=== PATIENT | male | born 1970 | race American Indian/Alaskan Native ===

== ENCOUNTER 2016-09-28 02:07 | Inpatient (IN) | payer MEDICAID ==
[2016-09-28 03:02] LABS: Anion Gap 20 mmol/L; Blood Urea Nitrogen 21 mg/dL (9-20); Calcium 8.9 mg/dL (8.4-10.2); Carbon Dioxide 25 mmol/L (22-30); Chloride 98.3 mmol/L (98-107); Glucose 103 mg/dL (75-100); Potassium 3.9 mmol/L (3.6-5.0); Sodium 139 mmol/L (137-145)
[2016-09-28 03:20] LABS: Basophils % (Auto) 0.7 % (0.0-1.8); Hematocrit 40.5 % (35.5-45.6); Hemoglobin 13.3 gm/dl (11.8-15.2); Mean Corpuscular HGB Conc 33 % (32-34); Mean Corpuscular Hemoglobin 29 pg (28-32); Mean Corpuscular Volume 87 fl (84-94); Platelet Count 186 K/mm3 (140-440); Red Blood Count 4.67 M/mm3 (3.65-5.03); Red Cell Distribution Width 15.4 % (13.2-15.2)
--- NOTE | 2016-09-28 07:38 | XRay Report ---
ROUTINE CHEST, TWO VIEWS: HISTORY: chest pain. The trachea, heart, mediastinal contour, lung saba and bony thorax are unremarkable. IMPRESSION: No acute cardiopulmonary process appreciated.
[2016-09-28] MEDS ORDERED: NITRO-BID 2% TP ONE (08:08)
[2016-09-28] MEDS ORDERED: MORPHINE IV ONE (08:08)
[2016-09-28] MEDS ORDERED: ZOFRAN IV ONE (08:08)
[2016-09-28] MEDS ORDERED: ASPIRIN PO ONE (08:17)
--- NOTE | 2016-09-28 08:17 | Emergency Department Report ---
HPI - General Chief Complaint: Chest Pain Time Seen by Provider: 09/28/16 08:00 - [facility] HPI: Room 18 The patient is a 45-year-old male presenting with a chief complaint of chest pain. The patient states for 1 week history of intermittent pain in the substernal/right chest described as aching in nature. The patient states sometimes it hurts when he moves all the times it hurts at rest. Patient denies shortness of breath, nausea/vomiting or diaphoresis. The patient admits to intermittent left upper extremity pain with chest pain. Patient states she' s never had a stress test or cardiac catheterization Location: Chest Duration: Intermittent times one week Quality: Aching Severity: 5/10 Modifying factors: [see above] Context: [see above] Mode of transportation: Unknown ED Past Medical Hx - Past Medical History Previous Medical History?: No - Surgical History Past Surgical History?: No - Social History Smoking Status: Never Smoker Substance Use Type: None ED Review of Systems ROS: Stated complaint: CHEST PAIN Other details as noted in HPI Physical Exam - Physical Exam Vital Signs: Vital Signs 09/28/16 09/28/16 02:20 05:59 Temperature 98.4 F 98 F Pulse Rate 76 71 Respiratory 16 21 Rate Blood Pressure 113/82 Blood Pressure 107/72 [Right] O2 Sat by Pulse 95 95 Oximetry ED Course Vital Signs 09/28/16 09/28/16 02:20 05:59 Temperature 98.4 F 98 F Pulse Rate 76 71 Respiratory 16 21 Rate Blood Pressure 113/82 Blood Pressure 107/72 [Right] O2 Sat by Pulse 95 95 Oximetry ED Medical Decision Making - Lab Data Result diagrams: 09/28/16 02:29 09/28/16 02:29 Laboratory Tests 09/28/16 09/28/16 09/28/16 02:29 02:29 04:58 WBC 5.0 RBC 4.67 Hgb 13.3 Hct 40.5 MCV 87 MCH 29 MCHC 33 RDW 15.4 H Plt Count 186 Lymph % (Auto) 34.0 Foard % (Auto) 7.0 Eos % (Auto) 4.0 Baso % (Auto) 0.7 Lymph # 1.7 Foard # 0.3 Eos # 0.2 Baso # 0.0 Seg Neutrophils % 54.3 Seg Neutrophils # 2.7 Sodium 139 Potassium 3.9 Chloride 98.3 Carbon Dioxide 25 Anion Gap 20 BUN 21 H Creatinine 1.2 Estimated GFR > 60 BUN/Creatinine Ratio 17.50 Glucose 103 H Calcium 8.9 Troponin T < 0.010 < 0.010 - EKG Data -: EKG Interpreted by Me EKG shows normal: sinus rhythm Rate: normal - EKG Data When compared to previous EKG there are: previous EKG unavailable Interpretation: other (no ischemic changes seen) - Radiology Data Radiology results: image reviewed (chest x-ray) interpreted by me: Chest x-ray-no focal infiltrates, no pneumothorax - Differential Diagnosis ACS, GERD, pericarditis, costochondritis Critical care attestation.: If time is entered above; I have spent that time in minutes in the direct care of this critically ill patient, excluding procedure time. ED Disposition Clinical Impression: Chest pain Disposition: OP ADMIT IP TO THIS HOSP Is pt being admited?: Yes Does the pt Need Aspirin: Yes Condition: Fair Instructions: Chest Pain (ED) Referrals: PRIMARY CARE, [Primary Care Provider] - 3-5 Days Time of Disposition: 08:17 (hospitalist notified)
[2016-09-28] MEDS ORDERED: DULCOLAX PR PRN (08:35)
[2016-09-28] MEDS ORDERED: MORPHINE IV PRN (08:35)
[2016-09-28] MEDS ORDERED: TYLENOL PO PRN (08:35)
[2016-09-28] MEDS ORDERED: ZOFRAN IM PRN (08:38)
--- NOTE | 2016-09-28 08:38 | History and Physical Report ---
<IVON WILLAMS - Last Filed: 09/28/16 13:33> History of Present Illness History of present illness: Patient is a 45 years -Citizen Of [place] male with no past medical history, who presented to the ED complaining of left chest pain. He states that the pain began last night and consisted of a dull pain. The pain was located over his left chest area somewhat near his shoulder; radiating to left arm and shoulder. The onset of pain came while the patient was at home watching TV. The pain is a dull, preceded by a short interval of a sharp pain.The sharp pain lasted around 1-2 seconds. The patient did experience some muscle stiffness in his left arm and leg after the pain ceased.He continued to have several episodes of the pain throughout the night, so he decided to visit the emergency department. The painful episodes did not increase in intensity or severity during this time. Patient was given nitroglycerin, ASA and which he claims helped alleviate the pain somewhat. All There is no aggravating factor. The patient currently rated his pain a score of 5/10. He experienced shortness of breath and diaphoresis during these episodes of pain. He denies nausea vomiting. He has never had chest pain in the past. Past History Past Medical History: No medical history Past Surgical History: No surgical history Social history: no significant social history Family history: CAD, hypertension Medications and Allergies Allergies Allergy/AdvReac Type Severity Reaction Status Date / Time No Known Allergies Allergy Verified 09/28/16 02:18 Home Medications Medication Instructions Recorded Confirmed Last Taken Type No Known Home Medications [No 09/28/16 09/28/16 Unknown History Reported Home Medications] Review of Systems Constitutional: sweats, no weight loss, no weight gain, no fever Ears, nose, mouth and throat: no ear pain, no ear discharge, no tinnitis, no decreased hearing, no nose pain, no nasal congestion Cardiovascular: chest pain, lightheadedness, shortness of breath, no syncope, no dyspnea on exertion, no paroxysmal nocturnal dyspnea Respiratory: no cough with sputum, no dyspnea on exertion Gastrointestinal: no nausea, no vomiting Genitourinary Male: no hematuria, no flank pain, no discharge Rectal: no pain, no incontinence Musculoskeletal: no neck stiffness, no neck pain, no shooting arm pain, no low back pain, no leg numbness/tingling Integumentary: no pruritis, no redness Neurological: no transient paralysis, no paralysis, no weakness Psychiatric: no memory loss, no change in sleep habits, no sleep disturbances, no insomnia, no hypersomnia Endocrine: no cold intolerance, no polyphagia, no excessive thirst Hematologic/Lymphatic: no easy bruising, no easy bleeding Allergic/Immunologic: no urticaria, no allergic rhinitis Exam - Constitutional Vitals: Temp Pulse Resp BP Pulse Ox 98 F 71 21 107/72 95 09/28/16 05:59 09/28/16 05:59 09/28/16 05:59 09/28/16 05:59 09/28/16 05:59 General appearance: Present: no acute distress - EENT Eyes: Present: PERRL ENT: hearing intact - Neck Neck: Present: supple - Respiratory Respiratory effort: normal - Cardiovascular Heart rate: 76 Rhythm: regular - Extremities Extremities: no ischemia Peripheral Pulses: within normal limits - Abdominal Male genitourinary: Present: deferred - Rectal Rectal Exam: deferred - Integumentary Integumentary: Present: clear, warm, dry - Musculoskeletal Musculoskeletal: strength equal bilaterally - Psychiatric Psychiatric: appropriate mood/affect - Neurologic Neurologic: CNII-XII intact - Allied Health Allied health notes reviewed: nursing Results - Labs CBC & Chem 7: 09/28/16 02:29 09/28/16 02:29 Labs: Laboratory Last Values WBC 5.0 K/mm3 (4.5-11.0) 09/28/16 02:29 RBC 4.67 M/mm3 (3.65-5.03) 09/28/16 02:29 Hgb 13.3 gm/dl (11.8-15.2) 09/28/16 02:29 Hct 40.5 % (35.5-45.6) 09/28/16 02:29 MCV 87 fl (84-94) 09/28/16 02:29 MCH 29 pg (28-32) 09/28/16 02:29 MCHC 33 % (32-34) 09/28/16 02:29 RDW 15.4 % (13.2-15.2) H 09/28/16 02:29 Plt Count 186 K/mm3 (140-440) 09/28/16 02:29 Lymph % (Auto) 34.0 % (13.4-35.0) 09/28/16 02:29 King % (Auto) 7.0 % (0.0-7.3) 09/28/16 02: Eos % (Auto) 4.0 % (0.0-4.3) 09/28/16 02: Baso % (Auto) 0.7 % (0.0-1.8) 09/28/16 02: Lymph # 1.7 K/mm3 (1.2-5.4) 09/28/16 02: King # 0.3 K/mm3 (0.0-0.8) 09/28/16 02: Eos # 0.2 K/mm3 (0.0-0.4) 09/28/16 02: Baso # 0.0 K/mm3 (0.0-0.1) 09/28/16 02: Seg Neutrophils % 54.3 % (40.0-70.0) 09/28/16 02: Seg Neutrophils # 2.7 K/mm3 (1.8-7.7) 09/28/16 02:29 Sodium 139 mmol/L (137-145) 09/28/16 02:29 Potassium 3.9 mmol/L (3.6-5.0) 09/28/16 02:29 Chloride 98.3 mmol/L (98-107) 09/28/16 02:29 Carbon Dioxide 25 mmol/L (22-30) 09/28/16 02:29 Anion Gap 20 mmol/L 09/28/16 02:29 BUN 21 mg/dL (9-20) H 09/28/16 02:29 Creatinine 1.2 mg/dL (0.8-1.5) 09/28/16 02:29 Estimated GFR > 60 ml/min 09/28/16 02:29 BUN/Creatinine Ratio 17.50 % 09/28/16 02:29 Glucose 103 mg/dL (75-100) H 09/28/16 02:29 Calcium 8.9 mg/dL (8.4-10.2) 09/28/16 02:29 Troponin T < 0.010 ng/mL (0.00-0.029) 09/28/16 04:58 Assessment and Plan Assessment and plan: Assessment and plan: Patient is a 45 years -Citizen Of [place] male with no past medical history, who presented to the ED complaining of right chest pain. He states that the pain began last night and consisted of a dull pain.He has never had chest pain in the past. Chest x-ray-no focal infiltrates, no pneumothorax. Cardiac enzyme negative and Normal EKG Sinus rhythm Chest pain We will admit to telemetry Normal EKG Sinus rhythm We will repeat serial cardiac enzymes and follow cardiac enzymes troponin. Fluid hydration Stress test Lexiscan ordered Start on aspirin Morphine ordered for pain DVT prophylaxis Lovenox patient Full code <JOSÉ CANALES - Last Filed: 09/28/16 13:45> History of Present Illness Date of admission: 09/28/16 08:36 Past History Social history: no significant social history. denies: smoking, alcohol abuse, IV drug use Medications and Allergies Active Meds: Active Medications Acetaminophen (Tylenol) 650 mg PO Q4H PRN PRN Reason: Pain MILD(1-3)/Fever >100.5/SANTOS Aspirin (Aspirin) 325 mg PO QDAY YANET Bisacodyl (Dulcolax) 10 mg WA QDAY PRN PRN Reason: Constipation unrelieved by MOM Enoxaparin Sodium (Lovenox) 40 mg SUB-Q QDAY YANET Last Admin: 09/28/16 13:19 Dose: 40 mg Morphine Sulfate (Morphine) 2 mg IV Q4H PRN PRN Reason: Pain, Moderate (4-6) Ondansetron HCl (Zofran) 4 mg IM Q4H PRN PRN Reason: Nausea And Vomiting Exam - Constitutional Vitals: Temp Pulse Resp BP Pulse Ox 98 F 77 20 119/78 100 09/28/16 05:59 09/28/16 11:23 09/28/16 11:00 09/28/16 11:23 09/28/16 11:00 Results - Labs CBC & Chem 7: 09/28/16 02:29 09/28/16 02:29 Labs: Laboratory Last Values WBC 5.0 K/mm3 (4.5-11.0) 09/28/16 02:29 RBC 4.67 M/mm3 (3.65-5.03) 09/28/16 02:29 Hgb 13.3 gm/dl (11.8-15.2) 09/28/16 02:29 Hct 40.5 % (35.5-45.6) 09/28/16 02: MCV 87 fl (84-94) 09/28/16 02: MCH 29 pg (28-32) 09/28/16 02: MCHC 33 % (32-34) 09/28/16 02: RDW 15.4 % (13.2-15.2) H 09/28/16 02: Plt Count 186 K/mm3 (140-440) 09/28/16 02: Lymph % (Auto) 34.0 % (13.4-35.0) 09/28/16 02: King % (Auto) 7.0 % (0.0-7.3) 09/28/16 02: Eos % (Auto) 4.0 % (0.0-4.3) 09/28/16 02: Baso % (Auto) 0.7 % (0.0-1.8) 09/28/16 02: Lymph # 1.7 K/mm3 (1.2-5.4) 09/28/16 02: King # 0.3 K/mm3 (0.0-0.8) 09/28/16 02: Eos # 0.2 K/mm3 (0.0-0.4) 09/28/16 02: Baso # 0.0 K/mm3 (0.0-0.1) 09/28/16 02: Seg Neutrophils % 54.3 % (40.0-70.0) 09/28/16 02: Seg Neutrophils # 2.7 K/mm3 (1.8-7.7) 09/28/16 02: Sodium 139 mmol/L (137-145) 09/28/16 02: Potassium 3.9 mmol/L (3.6-5.0) 09/28/16 02: Chloride 98.3 mmol/L (98-107) 09/28/16 02: Carbon Dioxide 25 mmol/L (22-30) 09/28/16 02:29 Anion Gap 20 mmol/L 09/28/16 02:29 BUN 21 mg/dL (9-20) H 09/28/16 02: Creatinine 1.2 mg/dL (0.8-1.5) 09/28/16 02:29 Estimated GFR > 60 ml/min 09/28/16 02:29 BUN/Creatinine Ratio 17.50 % 09/28/16 02:29 Glucose 103 mg/dL (75-100) H 09/28/16 02:29 Calcium 8.9 mg/dL (8.4-10.2) 09/28/16 02:29 Troponin T < 0.010 ng/mL (0.00-0.029) 09/28/16 08:31 Assessment and Plan Assessment and plan: I saw and evaluated the patient. I agree with the findings and the plan of care as documented in the Nurse Practitioner's~note, with the following corrections and additions.
--- NOTE | 2016-09-28 08:47 | Admit Criteria Form ---
Admission Criteria Documentation: CARDIOLOGY GRG Clinical Indications for Admission to Inpatient Care ( Place 'X' for any and all applicable criteria): Hospital admission is needed for appropriate care of the patient because of ANY ONE of the following (1): [ ] I. Hemodynamic instability as indicated by ALL of the following (1)(2)(3) (4)(5) [ ]a) Vital signs or other findings not as expected for chronic patient condition or baseline [ ]b) Instability indicated by ANY ONE of the following: [ ]i) Hypotension [ ]ii) Symptomatic Tachycardia unresponsive to treatment ( e.g., analgesia, fluids, sedation as indicated) [ ]iii) Inadequate perfusion indicated by ANY ONE of the following: [ ] 1) Lactic acidosis (> 2 mmol/L) [ ] 2) New abnormal capillary refill (> 3 seconds) [ ] 3) Reduced urine output [ ] 4) New altered mental status [ ]iv) Orthostatic vital sign changes unresponsive to treatment (e.g., fluids) [ ]v) IV inotropic or vasopressor medication required to maintain adequate blood pressure or perfusion [ ] II. Severe heart failure as indicated by ANY ONE of the following(17)(18) [ ]a) Respiratory distress [ ]b) Hypotension [ ]c) Anasarca (refractory to outpatient therapy) [ ]d) Cardiac arrhythmias of immediate concern [ ]e) Myocardial ischemia [ ] III. Cardiac arrhythmias or findings of immediate concern indicated by ANY ONE of the following (19)(20): [ ] a) Heart rhythms that are inherently dangerous or unstable indicated by ANY ONE of the following (21)(22)(23): [ ] i) Resuscitated ventricular fibrillation or cardiac arrest [ ] ii) Ventricular escape rhythm [ ] iii) Sustained ventricular tachycardia (30 seconds or more of ventricular rhythm at greater than 100 beats per minute) [ ] iv) Nonsustained ventricular tachycardia and ANY ONE of the following: [ ] 1) Suspected cardiac ischemia as cause or consequence of ventricular tachycardia [ ] 2) In setting of acute myocarditis [ ] b) Unstable cardiac conduction defects indicated by ANY ONE of the following(23)(24)(25) [ ] i) Type II second-degree atrioventricular block [ ]ii) Third-degree atrioventricular block [ ]iii) New-onset left bundle branch block with suspected myocardial ischemia [ ]c) Any heart rhythm and ANY ONE of the following (21)(22)(26)(27) (28) [ ] i) Continuous long-term ECG monitoring needed (e.g., initiation of drug requiring monitoring for more than 24 hours) [ ] ii) Patient has automatic implanted cardioverter defibrillator that is repeatedly firing, malfunctioning, or in need of immediate adjustment of settings beyond the scope of ambulatory or observation care [ ]d) Heart rhythms of concern due to ANY ONE of the following: [ ] i) Hypotension [ ] ii) Respiratory distress [ ] iii) Association with other significant symptoms (e.g., bradycardia with syncope or ongoing dizziness, supraventricular tachycardia with chest pain (14)(15)(17) [ ] IV. Monitoring for cardiac contusion beyond the scope of observation care needed [A](30)(31)(32) [ ] V. Surgical or device complication (e.g., valve replacement complication , pacemaker dysfunction) (35)(41)(44)(45)(46) [ ] . Inpatient palliative care needed. [B](49) Also use Inpatient Palliative Care Criteria [ ] VII. Nonbacterial thrombotic (marantic) endocarditis (36)(43)(47)(48) [X] VIII. Cardiology condition, symptom, or finding for which emergency and observation care has failed or are not considered appropriate. [ ] IX. Acute valvular disease requiring inpatient as indicated by ANY ONE of the following (41) [ ]a) Acute valvular regurgitation (42) [ ]b) Noninfectious valvulitis (43) [ ]c) Obstructive valve thrombosis [ ]d) Paravalvular leak [ ]e) Other significant valvular disorder remaining after emergency or observation level of care (as appropriate) [ ]X. Pericardial disease requiring inpatient treatment as indicated by ANY ONE of the following (33)(34)(35)(36)(37) [ ]a) Suspected tamponade (38)(39)(40) [ ]b) Hemopericardium [ ]c) Other significant pericardial disorder remaining after emergency or observation level of care (as appropriate) [ ] XI. Cardiac ischemia beyond scope of emergency and observation care. [ ] XII. Hypertension requiring inpatient treatment as indicated by ANY ONE of the following (6)(7)(8) [ ]a) SBP greater than 220 mm Hg or DBP greater than 120 mmHg despite treatment [ ]b) SBP greater than 140 mm Hg or DBP greater than 100 mm Hg with evidence of acute end organ damage as indicated by ANY ONE of the following [ ] i) Altered mental status [ ] ii) Acute renal failure as indicated by new onset of ANY ONE of the following (9)(10)(11)(12)(13) [ ]1) 3-fold rise in serum creatinine from baseline [ ]2) Serum creatinine greater than 4 mg/dL ( 354 micromoles/L) with acute rise greater than 0.5 mg/dL (44.2 micromoles/L) [ ]3) Reduction of more than 75% in estimated glomerular filtration rate from baseline [ ]4) Estimated glomerular filtration rate less than 35 mL/min/1.73m2 (0.59 mL/sec/1.73m2) in child up to 18 years of age [ ]5) Cessation of urine output indicated by ALL of the following [ ]A. Adequate volume status [ ]B. Inadequate urine output as indicated by ANY ONE of the following [ ]a. Urine output less than 0.3 mL/kg/hr for 24 hours [ ]b. Anuria (urine output less than 0.1 mL/kg/hr) for 12 hours [ ] iii) Aortic dissection [ ] iv) Myocardial Ischemia [ ] v) Left ventricular heart failure [ ]vi) Retinal Hemorrhage [ ]vii) Other significant finding [ ]c) Hypertension in child requiring inpatient treatment as indicated by ALL of the following(14)(15)(16) [ ] i) Outpatient treatment not effective, not available, or not appropriate [ ]ii) SBP or DBP greater than 95th percentile for age [ ]iii) Evidence of acute end organ damage as indicated by ANY ONE of the following [ ]1) Altered mental status [ ]2) Acute renal failure as indicated by new onset of ANY ONE of the following(9)(10)(11)(12)(13) [ ]A. 3-fold rise in serum creatinine from baseline [ ]B. Serum creatinine greater than 4 mg/dL (354 micromoles/L) with acute rise greater than 0.5 mg/dL (44.2 micromoles/L) [ ]C. Reduction of more than 75% in estimated glomerular filtration rate from baseline [ ]D. Estimated glomerular filtration rate less than 35 mL/min/1.73m2 (0.59 mL/sec/1.73m2) in child up to 18 years of age [ ]E. Cessation of urine output indicated by ALL of the following [ ]a. Adequate volume status [ ]b. Inadequate urine output as indicated by ANY ONE of the following [ ]i) Urine output less than 0.3 mL/kg/hr for 24 hours [ ]ii) Anuria ( urine output less than 0.1 mL/kg/hr) for 12 hours [ ]3) Severe headache [ ]4) Visual disturbance [ ]5) Retinal hemorrhage [ ]6) Other significant finding [ ]XIII. Complications of transplanted heart indicated by ANY ONE of the following(61): [ ]a) Acute graft rejection requiring inpatient management (eg, intravenous immunosuppression)(62)(63) [ ]b) Acute graft heart failure indicated by ANY ONE of the following(64): [ ]i) Hemodynamic instability [ ]ii) Cardiac arrhythmias of immediate concern [ ]iii) Pulmonary edema that is very severe (eg, mechanical ventilation needed, imminent or likely, need for 100% oxygen to keep oxygen saturation above 90%) [ ]iv) Pulmonary edema that is persistent as indicated by ALL of the following: [ ]1) New need for oxygen therapy to keep oxygen saturation above 90% (or increased FiO2 need from baseline) [ ]2) Has not improved sufficiently with emergency department or observation care IV diuretics or other heart failure treatments[E] [ ]v) Altered mental status that is severe or persistent [ ]vi) Increased creatinine (new on laboratory test) with reduction of more than 50% in estimated glomerular filtration rate from baseline [ ]vii) Progressively (ongoing) rising creatinine (known from past laboratory test) with reduction of more than 25% in estimated glomerular filtration rate from baseline [ ]viii) Acute renal failure [ ]ix) Acute peripheral ischemia (eg, examination shows pulseless, cool, mottled, or cyanotic extremity) [ ]x) Pulmonary artery catheter monitoring needed [ ]xi) Other sign or symptom of heart failure requiring inpatient treatment (ie, too severe or not responsive to outpatient and observation care treatment) [ ]c) Infection requiring inpatient management (eg, Hemodynamic instability, need for intravenous antimicrobial treatment)(66)(67)(68)(69)(70) [ ]d) Cardiac allograft vasculopathy requiring inpatient management ( eg evidence of cardiac ischemia)(71) [ ]e) Other complication of transplanted heart (eg, stroke, severe pulmonary hypertension, severe valvular dysfunction) requiring inpatient management(72) The original [facility] [employer] content created by [employer] has been revised. The portions of the content which have been revised are identified through the use of italic text or in bold, and [facility] has neither reviewed nor approved the modified material. All other unmodified content is copyright [facility] [employer]. Please see references footnoted in the original [facility] [employer] edition 2016 Admission Criteria Met: Yes
[2016-09-28] MEDS ORDERED: LOVENOX SUB-Q SCH (10:00)
[2016-09-28] MEDS ORDERED: LEXISCAN IV ONE ×2 (10:43→12:00)
[2016-09-28 12:48] VITALS: BP 119/78
--- NOTE | 2016-09-28 13:48 | Discharge Summary ---
<IVON WILLAMS - Last Filed: 09/28/16 14:42> Providers - Providers Date of Admission: 09/28/16 08:36 Date of discharge: 09/28/16 Attending physician: JOSÉ CANALES Primary care physician: CHEKO BOYCE MD Hospitalization Reason for admission: Chest Pain Condition: Fair Hospital course: Patient is a 45 years -[place] male with no past medical history, who presented to the ED complaining of left chest pain. He states that the pain began last night and consisted of a dull pain. Patient was admitted for chest pain. Patient presented with atypical chest pain, ACS was ruled out,stress test normal MPI, negative cardiac enzymes, ECGs shows normal sinus rythm, CXR was wnl. Patient chest pain probably from musculoskeletal or gastritis. He was treated with IV fluid hydration and pain medications. He is being discharged on oral pain medication for costrochondritis. Patient is clinically improved and stable for discharge. Patient advised to follow-up with his primary care provider. Diagnosed Chest Pain Disposition: TO HOME OR SELFCARE Time spent for discharge: 33 Core Measure Documentation - Palliative Care Palliative Care/ Comfort Measures: Not Applicable - Core Measures Any of the following diagnoses?: none Exam - Constitutional Vitals: Temp Pulse Resp BP Pulse Ox 98 F 77 20 119/78 100 09/28/16 05:59 09/28/16 11:23 09/28/16 11:00 09/28/16 11:23 09/28/16 11:00 General appearance: Present: no acute distress - EENT Eyes: Present: PERRL ENT: hearing intact - Neck Neck: Present: supple - Respiratory Respiratory effort: normal Respiratory: bilateral: CTA - Cardiovascular Heart rate: 77 Rhythm: regular Heart Sounds: Present: S1 & S2 - Extremities Extremities: no ischemia Peripheral Pulses: within normal limits - Abdominal General gastrointestinal: Present: soft, non-tender Male genitourinary: Present: normal - Rectal Rectal Exam: deferred - Integumentary Integumentary: Present: clear, warm, dry - Musculoskeletal Musculoskeletal: strength equal bilaterally - Psychiatric Psychiatric: appropriate mood/affect - Neurologic Neurologic: CNII-XII intact - Allied Health Allied health notes reviewed: nursing Plan Activity: no restrictions Weight Bearing Status: Weight Bear as Tolerated Follow up with: PRIMARY CARE, [Primary Care Provider] - 3-5 Days Prescriptions: Ibuprofen [Motrin 800 MG tab] 800 mg PO Q8HR PRN #14 tablet PRN Reason: Pain , Severe (7-10) <JOSÉ CANALES - Last Filed: 09/28/16 15:23> Providers - Providers Date of Admission: 09/28/16 08:36 Attending physician: JOSÉ CANALES Primary care physician: CHAIN HOOKER Hospitalization Hospital course: Discharge Diagnosis: Chest pain likely due to costochondritis Exam - Constitutional Vitals: Temp Pulse Resp BP Pulse Ox 98 F 77 20 119/78 100 09/28/16 05:59 09/28/16 11:23 09/28/16 11:00 09/28/16 11:23 09/28/16 11:00 - Cardiovascular Rhythm: other (tenderness along the right chest wall near sternum on palpation)
--- NOTE | 2016-09-29 06:17 | Treadmill Report ---
MYOCARDIAL PERFUSION IMAGING STUDY INDICATION: Resting perfusion images revealed homogeneous radioisotope activity throughout the myocardium. On post-Lexiscan, again similar distribution is noted. Slightly increased gut uptake is noted on resting as well as post-Lexiscan images. Ejection fraction was noted to be normal at 54%. Right ventricle was normal. IMPRESSION: 1. This test is negative for ischemia. 2. Normal left ventricular systolic function. 3. No evidence of transient ischemic dilatation. JOB# [id number] KR/NTS
[2016-09-29] MEDS ORDERED: ASPIRIN PO SCH (10:00)
== END 2016-09-28 15:28 | disposition home or self-care (01) | DRG 206 ==
LOC: ED 02:07 → 4A 08:36
PROVIDERS: ADMIT Internal Medicine; ATTEND Internal Medicine
DX: M94.0 Chondrocostal junction syndrome [Tietze] (principal); Z82.49 Family history of ischemic heart disease and other diseases of the circulatory system; K29.70 Gastritis, unspecified, without bleeding
CPT/HCPCS: 36415; 71020; 78452; 80048; 84484; 85025; 93005; 93010; 93017; 96374; 96375; A9502; J2270; J2405; J2785

== ENCOUNTER 2017-12-21 01:17 | Emergency (ER) | payer MEDICAID ==
[2017-12-21] MEDS ORDERED: ASPIRIN PO ONE (01:41)
[2017-12-21 02:02] LABS: Basophils % (Auto) 0.6 % (0.0-1.8); Eosinophils # (Auto) 0.1 K/mm3 (0.0-0.4); Eosinophils % (Auto) 2.6 % (0.0-4.3); Hematocrit 41.3 % (35.5-45.6); Hemoglobin 13.5 gm/dl (11.8-15.2); Lymphocytes # (Auto) 1.5 K/mm3 (1.2-5.4); Lymphocytes % (Auto) 29.5 % (13.4-35.0); Mean Corpuscular HGB Conc 33 % (32-34); Mean Corpuscular Hemoglobin 28 pg (28-32); Mean Corpuscular Volume 87 fl (84-94); Monocytes # (Auto) 0.4 K/mm3 (0.0-0.8); Monocytes % (Auto) 8.3 % (0.0-7.3); Platelet Count 225 K/mm3 (140-440); Red Blood Count 4.74 M/mm3 (3.65-5.03); Red Cell Distribution Width 14.8 % (13.2-15.2)
--- NOTE | 2017-12-21 02:12 | Emergency Department Report ---
ED Chest Pain HPI - General Chief Complaint: Chest Pain Stated Complaint: CHEST PAIN LT ARM PAIN Time Seen by Provider: 12/21/17 02:03 Source: patient Mode of arrival: Ambulatory Limitations: No Limitations - History of Present Illness Initial Comments: This is a pleasant 47-year-old gentleman with history of dyslipidemia presents with 3 days of left-sided chest burning. Pain is constant without change of movement or exertion. Pain is mild to moderate. No associated chest pain. Gradual onset. He's had headache. He's had bilateral knee swelling. He is followed by PCP on [facility]. He takes medication for cholesterol. Pain radiates to left arm. No family history of cardiac disease. MD Complaint: chest pain -: Gradual, days(s) (3) Onset: during rest Pain Location: left chest Quality: other (burning) Consistency: constant Improves With: nothing Worsens With: nothing Treatments Prior to Arrival: none - Related Data Previous Rx's Medication Instructions Recorded Last Taken Type Ibuprofen [Motrin 800 MG tab] 800 mg PO Q8HR PRN #14 tablet 09/28/16 Unknown Rx Allergies Allergy/AdvReac Type Severity Reaction Status Date / Time No Known Allergies Allergy Verified 09/28/16 02:18 Heart Score - HEART Score History: Slightly suspicious EKG: Normal Age: 45-65 Risk factors: 1-2 risk factors Troponin: < normal limit HEART Score: 2 ED Review of Systems ROS: Stated complaint: CHEST PAIN LT ARM PAIN Other details as noted in HPI Comment: All other systems reviewed and negative Constitutional: denies: fever, malaise Respiratory: denies: cough Cardiovascular: chest pain ED Past Medical Hx - Past Medical History Previous Medical History?: No Hx Congestive Heart Failure: No Hx Diabetes: No Hx Asthma: No Hx COPD: No Hx HIV: No - Surgical History Past Surgical History?: No - Social History Smoking Status: Never Smoker Substance Use Type: None - Medications Home Medications: Home Medications Medication Instructions Recorded Confirmed Last Taken Type Ibuprofen [Motrin 800 MG tab] 800 mg PO Q8HR PRN #14 tablet 09/28/16 Unknown Rx ED Physical Exam - General Limitations: No Limitations General appearance: alert, in no apparent distress - Head Head exam: Present: atraumatic, normocephalic - Eye Eye exam: Present: normal appearance - ENT ENT exam: Present: mucous membranes moist - Neck Neck exam: Present: normal inspection. Absent: tenderness, meningismus - Respiratory Respiratory exam: Present: normal lung sounds bilaterally. Absent: respiratory distress, wheezes, rales, rhonchi - Cardiovascular Cardiovascular Exam: Present: regular rate, normal rhythm, normal heart sounds. Absent: systolic murmur, diastolic murmur, rubs, gallop - GI/Abdominal GI/Abdominal exam: Present: soft, normal bowel sounds. Absent: distended, tenderness, guarding, rebound - Rectal Rectal exam: Present: deferred - Extremities Exam Extremities exam: Present: normal inspection - Back Exam Back exam: Present: normal inspection - Neurological Exam Neurological exam: Present: alert, oriented X3 - Psychiatric Psychiatric exam: Present: normal affect, normal mood - Skin Skin exam: Present: warm, dry, intact, normal color. Absent: rash ED Course Vital Signs 12/21/17 12/21/17 12/21/17 01:36 02:15 03:00 Temperature 98.4 F 98.2 F Pulse Rate 78 70 63 Respiratory 16 18 17 Rate Blood Pressure 107/71 107/73 Blood Pressure 117/77 [Left] O2 Sat by Pulse 97 98 99 Oximetry YENNIFER score - Yennifer Score Age > 65: (0) No Aspirin use within the Past 7 Days: (0) No 3 or more CAD Risk Factors: (0) No 2 or more Angina events in past 24 hrs: (0) No Elevated Cardiac Markers: (0) No ST Deviation Greater than 0.5mm: (0) No ED Medical Decision Making - Lab Data Result diagrams: 12/21/17 01:47 12/21/17 01:47 Laboratory Results - last 24 hr 12/21/17 12/21/17 01:47 01:47 WBC 5.1 RBC 4.74 Hgb 13.5 Hct 41.3 MCV 87 MCH 28 MCHC 33 RDW 14.8 Plt Count 225 Lymph % (Auto) 29.5 Isabela % (Auto) 8.3 H Eos % (Auto) 2.6 Baso % (Auto) 0.6 Lymph # 1.5 Isabela # 0.4 Eos # 0.1 Baso # 0.0 Seg Neutrophils % 59.0 Seg Neutrophils # 3.0 Sodium 139 Potassium 3.9 Chloride 101.4 Carbon Dioxide 27 Anion Gap 15 BUN 9 Creatinine 1.0 Estimated GFR > 60 BUN/Creatinine Ratio 9 Glucose 88 Calcium 9.5 Troponin T < 0.010 Vital Signs - 24 hr 12/21/17 12/21/17 12/21/17 01:36 02:15 03:00 Temperature 98.4 F 98.2 F Pulse Rate 78 70 63 Respiratory 16 18 17 Rate Blood Pressure 107/71 107/73 Blood Pressure 117/77 [Left] O2 Sat by Pulse 97 98 99 Oximetry - EKG Data -: EKG Interpreted by Pa EKG shows normal: sinus rhythm, axis, intervals, QRS complexes, ST-T waves Rate: normal - EKG Data Interpretation: normal EKG, other (right bundle-branch block present EKG unchanged from 09/29/2016) - Medical Decision Making Mr. Torres presents with 3 days of chest pain. I reviewed previous EMR. Patient had normal Lexiscan 09/28/2016. Chest pain at that time was deemed to be musculoskeletal. Patient had negative troponin. Low risk for ACS. Heart score is 2. Normal EKG is unchanged from September 2016. No indication of PE, pneumothorax, dissection, pneumonia. Patient given reassurance. Strongly encouraged follow-up with his PCP. Patient did explain that he is stressed at home. He is a single father. He has twin boys, one of which has cerebral palsy. Critical care attestation.: If time is entered above; I have spent that time in minutes in the direct care of this critically ill patient, excluding procedure time. ED Disposition Clinical Impression: Chest pain Disposition: DC-01 TO HOME OR SELFCARE Is pt being admited?: No Does the pt Need Aspirin: No Condition: Stable Instructions: Chest Pain (ED) Referrals: PRIMARY CARE, [Primary Care Provider] - [facility]
[2017-12-21 02:24] LABS: BUN/Creatinine Ratio 9; Blood Urea Nitrogen 9 mg/dL (9-20); Calcium 9.5 mg/dL (8.4-10.2); Hemolysis Index 4
[2017-12-21 04:24] VITALS: BP 107/74
== END 2017-12-21 04:28 | disposition home or self-care (01) ==
LOC: ED 01:17
DX: R07.89 Other chest pain (principal); R51 Headache; R22.43 Localized swelling, mass and lump, lower limb, bilateral
CPT/HCPCS: 36415; 80048; 84484; 85025; 93005; 93010